=== PATIENT | male | born 1985 ===

== ENCOUNTER 2016-09-27 07:40 | Day surgery (SDC) | payer OTHER ==
[2016-09-20 12:04] VITALS: BMI 29.2
[~2016-09-27 07:40] MED LIST: Lactated Ringer's 1,000 ML IV ONE
[2016-09-27 08:19] VITALS: O2SAT 100
[2016-09-27] MEDS ORDERED: cefTRIAXone IV 1 gm in Dextros 50 ML IVPB ONE (10:35)
[2016-09-27] MEDS ORDERED: Iohexol 240 200 ML IJ ONE (10:36)
[2016-09-27] MEDS ORDERED: Propofol 10 mg/ml Inj (20 ML) ONE (10:59)
[2016-09-27] MEDS ORDERED: HYDROmorphone 0.5 mg/0.5 ml ISec IVP PRN (11:03)
[2016-09-27] MEDS ORDERED: Lidocaine 2% Jelly (Uro-Jet) ONE (11:06)
[2016-09-27] MEDS ORDERED: Midazolam 2 MG/2 ML VIAL ONE (11:07)
--- NOTE | 2016-09-27 11:16 | PCM.SURG1 ---
Surgeon's Initial Post Op Note - Surgeon's Notes Surgeon: Elijah CASTAÑEDA Air Operations Manager: NONE Type of Anesthesia: IV Sedation Pre-Operative Diagnosis: INCONTINENCE Operative Findings: PROSTATITIS. TRABEC BLADDER Post-Operative Diagnosis: SAME Operation Performed: CMG. CGM. CYSTO Specimen/Specimens Removed: URINE Estimated Blood Loss: EBL {In ML}: 0 Blood Products Given: N/A Drains Used: No Drains Post-Op Condition: Good Date of Surgery/Procedure: 09/27/16 Time of Surgery/Procedure: 11:16
[2016-09-27 12:39] VITALS: BP 123/70; PULSE 68; RESP 18; TEMP 97
--- NOTE | 2016-09-28 08:37 | OP ---
PROCEDURE DATE: 09/27/2016 PREOPERATIVE DIAGNOSIS: Urinary incontinence. POSTOPERATIVE DIAGNOSES: Urinary incontinence. Prostatitis. PROCEDURE: Cystometrogram. Cystogram. Cystoscopy. OPERATING SURGEON: Dr. Aurelia Hollis. DESCRIPTION OF PROCEDURE: The patient was in the supine position. Genitalia prepped and draped in s terile fashion. A 16-[place] Lloyd catheter was inserted per urethra. The residual within the bladder was approximately 100 mL. Urine was sent for bacteriologic examinati on. The cystometrogram was performed. Carbon dioxide gas was instilled into the bladder at a filling rat e of 120 mL per minute. The patient had the first urge to void at a volume of 150 mL. Had a stronger desire to void at a vol ume of 190 mL. The patient felt full and needed to void at 250 mL volume. Capacity was 310 mL. There was mild increase in bladder pressure. There was good increase in bladder pressure noted with cough maneuver. There was no brisk detrusor contraction. There was no bladder instability demonstra umesh. The patient then had the bladder drained. Cystogram was performed. Iodinated contrast dye was instilled into the bladder. Radiographic views were obtained in PA and oblique views. Cystogram was normal. Bladder contour was normal. There were no intrinsic or extrinsic filling defe cts within the bladder. There was no significant elevation of the bladder base. There was no vesico ureteral reflux. The patient was placed in lithotomy position. Genitalia prepped and draped sterilely. Perioperative antibiotics were administered. Sedation was provided by the anesthesiologist. A 17-[place] cystoscope sheath was introduced under direct vision. Urethra, prostate and bladder were inspected with 30-degree and 70-degree lenses. Procedure was performed under video endoscopic contr ol. FINDINGS: There was no stricture of the anterior urethra. There was mild inflammation of the prosta tic urethral mucosa. The prostatic urethra was approximately 3 cm in length, mildly occlusive. There was mild bladder trabeculation. There was no bladder tumor. There was no bladder stone. The ureteral orifices were normal in position and shape. There was mild cystitis. There were no focal l esions within the bladder. The ureteral orifices and trigone were normal. There was no bladder dive rticulum. The bladder was reinspected with 70-degree lens and confirmed the above findings. The prostatic urethra demonstrated mild inflammation of the mucosa, especially toward the apex. There was no bladder stone. There was no bladder tumor. The bladder was then drained. Cystoscope and sheath removed. Rectal examination was performed. Prostate was supple and smooth, approximately 20 grams in size wit hout fixation, induration, or nodularity. The patient tolerated the procedure without complication. Aurelia Hollis MD cc: [id number] TT: 09/28/2016 08:36:08 tn
--- NOTE | 2016-09-28 11:07 | RAD ---
PROCEDURE: HISTORY: URINARY INCONTINENCE COMPARISON: None TECHNIQUE: Cystoscopy performed by Aurelia Hollis M.D. FINDINGS: Five images presented. On the initial gusset maker image no uro lithiasis is appreciated. There is some motion on the exam On images. 2,3 and 4 contrast within a moderately distended bladder is present. Outer contours normal. No gross filling defects suggested. Image number 5 shows complete drainage of contrast IMPRESSION: Cystogram as above. No filling defects or radiographic pathology suggested
== END 2016-09-27 12:45 | disposition home or self-care (01) ==
LOC: C.SDS 07:40
PROVIDERS: ATTEND Urology
DX: R32 Unspecified urinary incontinence (principal); N41.9 Inflammatory disease of prostate, unspecified
CPT/HCPCS: 51600; 52000; 74430; 87086; J0696; J7120; Q9966